=== PATIENT | female | born 1990 | race Caucasian/White ===

== ENCOUNTER 2017-07-07 18:29 | Emergency (ER) | payer OTHER, BC ==
[~2017-07-07] VITALS: Ht 162.6 cm; Wt 195.0 kg
[2017-07-07] MEDS ORDERED: CARB100SU (18:44)
[2017-07-07] MEDS ORDERED: CITA10S (18:44)
[2017-07-07] MEDS ORDERED: LEVSOD50 (18:44)
[2017-07-07] MEDS ORDERED: Cyclobenzaprine5 MG PO (20:14)
== END 2017-07-07 20:33 | disposition home or self-care (01) ==
LOC: ER 18:29
DX: M54.5 Low back pain (principal); E03.9 Hypothyroidism, unspecified; Z79.899 Other long term (current) drug therapy; V49.50XA Passenger injured in collision with unspecified motor vehicles in traffic accident, initial encounter
CPT/HCPCS: 72100